=== PATIENT | female | born 1975 | race African-American/Black ===

== ENCOUNTER 2019-03-30 18:49 | Emergency (ER) | payer MEDICAID ==
[~2019-03-30] VITALS: Ht 170.2 cm; Wt 54.0 kg
[2019-03-30 19:19] VITALS: BP 115/75
[2019-03-30 19:45] LABS: CLARITY URINE CLOUDY (CLEAR); COLOR URINE YELLOW (YELLOW); KETONES URINE NEGATIVE (NEGATIVE); LEUKOCYTE ESTERASE URINE 2+ (NEGATIVE); NITRITE URINE NEGATIVE (NEGATIVE); OCCULT BLOOD URINE NEGATIVE (NEGATIVE); PH URINE 5.5 (4.5-8.0); PROTEIN URINE NEGATIVE (NEGATIVE); SPECIFIC GRAVITY URINE 1.006 (1.005-1.030); UROBILINOGEN URINE 0.2 E.U./dL (0.2-1.0)
== END 2019-03-30 23:30 | disposition left against medical advice (07) ==
LOC: ER 18:49
DX: Z53.21 Procedure and treatment not carried out due to patient leaving prior to being seen by health care provider (principal)
CPT/HCPCS: 81003; 81025